=== PATIENT | male | born 1985 | race Two or more races ===

== ENCOUNTER 2025-02-11 21:54 | Emergency (ER) | payer MEDICAID ==
[~2025-02-11] VITALS: Ht 180.3 cm; Wt 82.6 kg
[2025-02-11 22:30] LABS: BASOPHILS # (AUTO) 0.2 K/uL (0.0-0.2); BASOPHILS % (AUTO) 3.2 % (0.0-2.0); EOSINOPHILS % (AUTO) 0.5 % (0.0-6.0); HEMATOCRIT 45 % (39-51); HEMOGLOBIN 15.3 g/dL (13.5-17.5); LYMPHOCYTES % (AUTO) 18.3 % (20.0-44.0); MEAN CORPUSCULAR HEMOGLOBIN 34 PG (26.0-33.0); MEAN CORPUSCULAR HGB CONC 34 g/dl (31.0-36.0); MEAN CORPUSCULAR VOLUME 98 fL (80-96); MONOCYTES # (AUTO) 0.8 K/uL (0.1-1.30); MONOCYTES % (AUTO) 13.5 % (2.0-12.0); NEUTROPHILS # (AUTO) 3.6 K/uL (1.8-8.9); NEUTROPHILS % (AUTO) 64.5 % (43.0-81.0); PLATELET COUNT (AUTO) 185 K/uL (150-450); RED BLOOD CELL COUNT(AUTO) 4.57 MIL/uL (4.5-6.0); RED CELL DISTRIBUTION WIDTH 13.8 % (11.5-15.0); WHITE BLOOD COUNT (AUTO) 5.6 K/uL (4.3-11.0)
[2025-02-11] MEDS ORDERED: PHENOBARBITAL SODIUM 130 MG/ML VIAL ONE (22:35)
[2025-02-11] MEDS: IV LR 1000 ML 1,000 ML BAG IV ONE (22:36)
[2025-02-11] MEDS: PHENOBARBITAL SODIUM 130 MG/ML VIAL IV ONE (22:36)
[2025-02-11 22:39] LABS: CALCIUM, SERUM 9.4 mg/dL (8.5-10.1); CREATININE 0.8 mg/dL (0.6-1.3); POTASSIUM 3.6 mmol/L (3.5-5.1)
[2025-02-11 22:46] LABS: ALBUMIN 4.5 g/dL (3.4-5.0); BILIRUBIN,DIRECT 0.3 mg/dL (0.0-0.2); BILIRUBIN,TOTAL 0.6 mg/dL (0.2-1.0); TOTAL PROTEIN, SERUM 8.7 g/dL (6.4-8.2)
[2025-02-11 23:04] LABS: AMPHETAMINE, URINE NEGATIVE (NEGATIVE); BARBITURATE, URINE NEGATIVE (NEGATIVE); BENZODIAZEPINE, URINE NEGATIVE (NEGATIVE); CANNABINOID, URINE NEGATIVE (NEGATIVE); COCCAINE, URINE NEGATIVE (NEGATIVE); OPIATE, URINE NEGATIVE (NEGATIVE); PHENCYCLIDINE SCREEN,URINE NEGATIVE (NEGATIVE)
[2025-02-11] MEDS ORDERED: Thiamine 100 MG/ML VIAL ONE (23:19)
[2025-02-11] MEDS: Thiamine 100 MG in IV D5W 50 ML IV ONE (23:25)
[2025-02-12 02:34] VITALS: BP 141/71; TEMP 98.7; O2SAT 98
== END 2025-02-12 02:35 | disposition home or self-care (01) ==
LOC: EDBD 22:05 → ER 22:05
DX: R56.9 Unspecified convulsions (principal); R74.8 Abnormal levels of other serum enzymes
CPT/HCPCS: 99285; 96365; 96361; 96375; 93005 ×2; 70450; 85025; 80048; 80076; 36415; 80320; 80307; J2560; J7060 ×2; J7120 ×2; J3411 ×2; G0480